=== PATIENT | female | born 1970 | race Caucasian/White ===

== ENCOUNTER → 2016-05-20 | Outpatient (CLI) | payer OTHER ==
--- NOTE | 2016-05-20 14:23 | MA ---
Right Unilateral Digital Diagnostic Mammogram History: Asymmetry in the medial right breast. Comparison: Mammograms through March 30, 2011. Technique: CC and mediolateral oblique spot compression views and a true lateral view were obtained. Findings: There is a persistent asymmetry in the medial right breast on the CC spot compression view, with no definite correlate on the MLO or true lateral views, possibly obscured by dense breast paren chyma. With spot compression, the area of interest appears similar to mammograms dating to 2010. Impression: BI-RADS 0: Needs additional imaging evaluation. Recommendation: Ultrasound, which will be performed later the same day. Please see ultrasound report and recommendations. [facility] will send a result letter to the patient.
--- NOTE | 2016-05-20 15:24 | US ---
Diagnostic Right Breast Ultrasound History: Asymmetry on mammograms. Comparison: Diagnostic mammogram same day. Technique: Limited grayscale and Doppler ultrasound in the region of mammographic abnormality is perf ormed. Real-time sonography is performed by the radiologist. Findings: There is a subtle hypoechoic 7 x 3 x 4 mm structure at 3 o'clock 5 cm from the nipple that may correspond to the finding on mammograms and is suggestive of a normal lymph node. Scattered tiny cysts are present. No suspicious masses or areas of architectural distortion are identified. Impression: Probable lymph node in the medial right breast. BI-RADS 3: Probably Benign Findings. Recommendation: Six-month follow up diagnostic right breast mammogram is recommended with ultrasound at the discretion of the interpreting radiologist. Findings and recommendations were discussed with t he patient. [facility] will send a result letter to the patient.
== END ==
LOC: CIMAGING 13:14
DX: Z12.39 Encounter for other screening for malignant neoplasm of breast (principal); R92.2 Inconclusive mammogram
CPT/HCPCS: 76641-PO; G0206

== ENCOUNTER → 2016-12-15 | Outpatient (CLI) | payer OTHER | LOC: CIMAGING 12:40 | PROVIDERS: ATTEND Nurse Practitioner Women's Health | DX: R92.8 Other abnormal and inconclusive findings on diagnostic imaging of breast (principal) | CPT/HCPCS: G0204 ==

== ENCOUNTER → 2017-05-21 | Outpatient (CLI) | payer OTHER | LOC: CIMAGING 08:11 | PROVIDERS: ATTEND Nurse Practitioner Women's Health | DX: Z12.31 Encounter for screening mammogram for malignant neoplasm of breast (principal) ==

== ENCOUNTER → 2018-05-23 | Outpatient (CLI) | payer OTHER | LOC: CIMAGING 14:43 | PROVIDERS: ATTEND Nurse Practitioner Women's Health | DX: Z12.31 Encounter for screening mammogram for malignant neoplasm of breast (principal) ==